=== PATIENT | female | born 1985 | race Asian ===

== ENCOUNTER → 2017-07-12 | Outpatient (CLI) | payer BC ==
[~2017-07-12] MED LIST: PNV#1COM7 PO
== END | disposition home or self-care (01) ==
LOC: LAB 12:52
PROVIDERS: ATTEND Obstetrics & Gynecology
DX: O20.0 Threatened abortion (principal); Z3A.00 Weeks of gestation of pregnancy not specified
CPT/HCPCS: 84144; 84702

== ENCOUNTER → 2017-11-02 | Outpatient (CLI) | END | disposition home or self-care (01) ==

== ENCOUNTER → 2017-12-16 | Outpatient (CLI) | END | disposition home or self-care (01) ==

== ENCOUNTER → 2018-02-10 | Outpatient (CLI) | END | disposition home or self-care (01) ==

== ENCOUNTER 2018-05-15 15:06 | Inpatient (IN) | END 2018-05-18 14:10 | disposition home or self-care (01) | DRG 775 ==